=== PATIENT | male | born 1985 | race Caucasian/White ===

== ENCOUNTER 2020-02-06 20:48 | Inpatient (IN) ==
[2020-02-06] MEDS ORDERED: Isovue-370 500 ML BOTTLE IVP ONE (22:00)
[2020-02-06] MEDS ORDERED: *HR* FentaNYL (PF) 100 MCG/2 ML VIAL IVP ONE (22:03)
[2020-02-06 22:27] LABS: Basophils # 0.1 K/mcL (0.0-0.2); Basophils % 0.3 %; Eosinophils # 0.4 K/mcL (0.0-0.6); Eosinophils % 2.8 %; Hematocrit 41.8 % (37.5-50.1); Immature Granulocytes % 0.4 % (0-4); Lymphocytes % 12.7 %; Mean Corpuscular HGB Conc 33.5 g/dL (31.6-35.5); Mean Corpuscular Hemoglobin 29.5 pg (28.0-33.3); Mean Corpuscular Volume 88.2 fL (83.0-100.0); Mean Platelet Volume 9.2 fL (9.4-12.4); Monocytes # 1.1 K/mcL (0.0-1.3); Monocytes % 7.2 %; Platelet Count 243 K/mcL (140-400); Red Blood Count 4.74 M/mcL (4.19-5.50); Segmented Neutrophils % 76.6 %; White Blood Count 15.7 K/mcL (4.3-11.1)
[2020-02-06 23:03] LABS: BUN/Creatinine Ratio 14 (6-26); Blood Urea Nitrogen 12 mg/dL (6-20); C-Reactive Protein 38 mg/L (Less than 10); Calcium 9.5 mg/dL (8.6-10.3); Carbon Dioxide 24 mEq/L (23-29); Chloride 103 mEq/L (98-107); Glucose 95 mg/dL (70-105); Osmolality,Calculated 276 (280-300); Potassium 4.2 mEq/L (3.5-5.1); Sodium 133 mEq/L (136-145); eGFR For African Americans > 60 (> 60); eGFR For Non-African Americans > 60 (> 60)
[2020-02-06] MEDS ORDERED: 0.9 % Sodium Chloride 1,000 ML IVC ONE (23:41)
[2020-02-06] MEDS ORDERED: Vancomycin 1,500 MG/265 ML IV.SOLN IVPB ONE (23:50)
[2020-02-07] MEDS ORDERED: Cefepime HCl 1,000 MG in Water for inj. (sterile) 10 ML IVP ONE (02:00)
[2020-02-07] MEDS ORDERED: Naloxone 0.4 MG/ML INJ IVP PRN (02:45)
[2020-02-07] MEDS: 0.9 % Sodium Chloride 1,000 ML IVC SCH ×2 (03:55→11:46)
[2020-02-07 04:34] LABS: Hemoglobin 12.6 g/dL (12.9-16.9); Mean Corpuscular HGB Conc 33.2 g/dL (31.6-35.5); Mean Corpuscular Hemoglobin 30.2 pg (28.0-33.3); Mean Corpuscular Volume 91.1 fL (83.0-100.0); Mean Platelet Volume 9.5 fL (9.4-12.4); Platelet Count 210 K/mcL (140-400); Red Blood Count 4.17 M/mcL (4.19-5.50); Red Cell Distribution Width 13.2 % (11.5-14.5)
[2020-02-07 04:43] LABS: BUN/Creatinine Ratio 12 (6-26); Blood Urea Nitrogen 10 mg/dL (6-20); Calcium 8.2 mg/dL (8.6-10.3); Carbon Dioxide 21 mEq/L (23-29); Chloride 105 mEq/L (98-107); Glucose 125 mg/dL (70-105); Magnesium 1.9 mg/dL (1.6-2.6); Osmolality,Calculated 277 (280-300); Phosphorous 2.6 mg/dL (2.7-4.5); Potassium 3.9 mEq/L (3.5-5.1); Sodium 133 mEq/L (136-145); eGFR For African Americans > 60 (> 60); eGFR For Non-African Americans > 60 (> 60)
[2020-02-07] MEDS: Cefepime HCl 2,000 MG in Water for inj. (sterile) 20 ML IVP SCH ×2 (06:00→16:51)
[2020-02-07] MEDS ORDERED: Nicotine 2 MG GUM BC PRN (10:24)
[2020-02-07] MEDS: Nicotine 21 MG PATCH.TD24 TD SCH (11:16)
[2020-02-07] MEDS ORDERED: Acetaminophen 325 MG TABLET PO PRN (11:24)
[2020-02-07] MEDS ORDERED: Ondansetron 4 MG/2 ML VIAL IVP PRN (11:24)
[2020-02-07] MEDS: Vancomycin 1,500 MG/265 ML IV.SOLN IVPB SCH (13:20)
[2020-02-08] MEDS: Vancomycin 1,500 MG/265 ML IV.SOLN IVPB SCH (01:22)
[2020-02-08] MEDS: Cefepime HCl 2,000 MG in Water for inj. (sterile) 20 ML IVP SCH ×2 (06:15→17:03)
[2020-02-08] MEDS: Nicotine 21 MG PATCH.TD24 TD SCH (07:59)
[2020-02-08 12:50] LABS: Hematocrit 39.8 % (37.5-50.1); Hemoglobin 12.9 g/dL (12.9-16.9); Mean Corpuscular HGB Conc 32.4 g/dL (31.6-35.5); Mean Corpuscular Hemoglobin 29.3 pg (28.0-33.3); Mean Corpuscular Volume 90.2 fL (83.0-100.0); Mean Platelet Volume 9.7 fL (9.4-12.4); Platelet Count 255 K/mcL (140-400); Red Blood Count 4.41 M/mcL (4.19-5.50); Red Cell Distribution Width 12.7 % (11.5-14.5); White Blood Count 13.6 K/mcL (4.3-11.1)
[2020-02-08 13:07] LABS: BUN/Creatinine Ratio 8 (6-26); Blood Urea Nitrogen 8 mg/dL (6-20); Calcium 9.3 mg/dL (8.6-10.3); Carbon Dioxide 26 mEq/L (23-29); Chloride 98 mEq/L (98-107); Glucose 119 mg/dL (70-105); Osmolality,Calculated 273 (280-300); Phosphorous 3.1 mg/dL (2.7-4.5); Potassium 3.5 mEq/L (3.5-5.1); Sodium 132 mEq/L (136-145); eGFR For African Americans > 60 (> 60); eGFR For Non-African Americans > 60 (> 60)
[2020-02-08] MEDS: [UNRECOGNIZED DRUG - OTHER] PO SCH ×2 (13:16→17:04)
[2020-02-08] MEDS: Vancomycin 1,250 MG/262.5 ML IV.SOLN IVPB SCH ×2 (14:23→21:56)
[2020-02-09 01:37] LABS: Hematocrit 38.9 % (37.5-50.1); Hemoglobin 13.1 g/dL (12.9-16.9); Mean Corpuscular HGB Conc 33.7 g/dL (31.6-35.5); Mean Corpuscular Hemoglobin 30.3 pg (28.0-33.3); Mean Platelet Volume 10.3 fL (9.4-12.4); Platelet Count 216 K/mcL (140-400); Red Blood Count 4.32 M/mcL (4.19-5.50); Red Cell Distribution Width 12.5 % (11.5-14.5); White Blood Count 13.3 K/mcL (4.3-11.1)
[2020-02-09 01:52] LABS: BUN/Creatinine Ratio 12 (6-26); Blood Urea Nitrogen 10 mg/dL (6-20); Calcium 8.9 mg/dL (8.6-10.3); Carbon Dioxide 17 mEq/L (23-29); Chloride 102 mEq/L (98-107); Glucose 135 mg/dL (70-105); Osmolality,Calculated 275 (280-300); Potassium 4.5 mEq/L (3.5-5.1); Sodium 132 mEq/L (136-145); eGFR For African Americans > 60 (> 60); eGFR For Non-African Americans > 60 (> 60)
[2020-02-09] MEDS: Cefepime HCl 2,000 MG in Water for inj. (sterile) 20 ML IVP SCH ×2 (04:53→16:44)
[2020-02-09] MEDS: Vancomycin 1,250 MG/262.5 ML IV.SOLN IVPB SCH ×3 (05:15→21:13)
[2020-02-09] MEDS: [UNRECOGNIZED DRUG - OTHER] PO SCH (06:54)
[2020-02-09] MEDS: Nicotine 21 MG PATCH.TD24 TD SCH ×3 (07:15→15:36)
[2020-02-09] MEDS ORDERED: *HR* Propofol 200 MG/20 ML VIAL IVP ONE (07:37)
[2020-02-09] MEDS ORDERED: *HR* Midazolam HCl 2 MG/2 ML VIAL ONE (07:37)
[2020-02-09] MEDS ORDERED: *HR* FentaNYL (PF) 100 MCG/2 ML VIAL ONE (07:37)
[2020-02-09] MEDS ORDERED: Lidocaine -MPF 2% 2 ML VIAL ONE (07:40)
[2020-02-09] MEDS ORDERED: Dexamethasone 4 MG/ML VIAL ONE (07:41)
[2020-02-09] MEDS ORDERED: Ondansetron 4 MG/2 ML VIAL ONE (07:41)
[2020-02-09] MEDS ORDERED: *HR* OxyCODONE Immed Rel 5 MG TABLET PO PRN (07:44)
[2020-02-09] MEDS ORDERED: *HR* HYDROmorphone PF 0.5 MG/0.5 ML SYRINGE IVP PRN ×2 (07:44→09:26)
[2020-02-09] MEDS ORDERED: Acetaminophen IV 1,000 MG/100 ML INFUS..BTL ONE (08:04)
[2020-02-09] MEDS ORDERED: Nicotine 2 MG GUM BC PRN (09:26)
[2020-02-09] MEDS ORDERED: Ondansetron 4 MG/2 ML VIAL IVP PRN (09:26)
[2020-02-09] MEDS ORDERED: Acetaminophen 325 MG TABLET PO PRN (09:26)
[2020-02-09] MEDS ORDERED: Naloxone 0.4 MG/ML INJ IVP PRN (09:26)
[2020-02-09] MEDS ORDERED: Patient Taking Own Medication 1 EACH PO SCH (12:00)
[2020-02-09] MEDS: polyethylene glycoL 3350 17 GM POWD.PACK PO SCH (14:30)
[2020-02-10] MEDS: Cefepime HCl 2,000 MG in Water for inj. (sterile) 20 ML IVP SCH ×2 (05:38→17:01)
[2020-02-10] MEDS: Vancomycin 1,250 MG/262.5 ML IV.SOLN IVPB SCH (05:39)
[2020-02-10] MEDS ORDERED: Ketorolac 15 MG/ML VIAL IVP ONE (06:02)
[2020-02-10] MEDS: polyethylene glycoL 3350 17 GM POWD.PACK PO SCH (07:45)
[2020-02-10] MEDS: Nicotine 21 MG PATCH.TD24 TD SCH (07:45)
[2020-02-10 08:44] LABS: Hematocrit 36.7 % (37.5-50.1); Mean Corpuscular HGB Conc 32.7 g/dL (31.6-35.5); Mean Corpuscular Hemoglobin 29.3 pg (28.0-33.3); Mean Corpuscular Volume 89.7 fL (83.0-100.0); Mean Platelet Volume 9.2 fL (9.4-12.4); Platelet Count 271 K/mcL (140-400); Red Blood Count 4.09 M/mcL (4.19-5.50); Red Cell Distribution Width 12.3 % (11.5-14.5); White Blood Count 15.3 K/mcL (4.3-11.1)
[2020-02-10] MEDS ORDERED: Nicotine 21 MG PATCH.TD24 TD SCH (09:00)
[2020-02-10 09:02] LABS: BUN/Creatinine Ratio 16 (6-26); Blood Urea Nitrogen 13 mg/dL (6-20); Calcium 8.6 mg/dL (8.6-10.3); Carbon Dioxide 25 mEq/L (23-29); Chloride 101 mEq/L (98-107); Glucose 162 mg/dL (70-105); Magnesium 1.9 mg/dL (1.6-2.6); Osmolality,Calculated 280 (280-300); Potassium 3.8 mEq/L (3.5-5.1); Sodium 133 mEq/L (136-145); eGFR For African Americans > 60 (> 60); eGFR For Non-African Americans > 60 (> 60)
[2020-02-10] MEDS: Vancomycin 1,500 MG/265 ML IV.SOLN IVPB SCH ×2 (17:00→23:06)
[2020-02-11] MEDS: Cefepime HCl 2,000 MG in Water for inj. (sterile) 20 ML IVP SCH (05:06)
[2020-02-11 05:27] LABS: Mean Corpuscular HGB Conc 32.4 g/dL (31.6-35.5); Mean Corpuscular Hemoglobin 29.3 pg (28.0-33.3); Mean Corpuscular Volume 90.5 fL (83.0-100.0); Mean Platelet Volume 9.6 fL (9.4-12.4); Platelet Count 265 K/mcL (140-400); Red Blood Count 4.09 M/mcL (4.19-5.50); Red Cell Distribution Width 12.5 % (11.5-14.5); White Blood Count 9.3 K/mcL (4.3-11.1)
[2020-02-11 05:46] LABS: BUN/Creatinine Ratio 12 (6-26); Blood Urea Nitrogen 9 mg/dL (6-20); Calcium 8.6 mg/dL (8.6-10.3); Carbon Dioxide 22 mEq/L (23-29); Chloride 104 mEq/L (98-107); Glucose 164 mg/dL (70-105); Osmolality,Calculated 280 (280-300); Potassium 3.8 mEq/L (3.5-5.1); Sodium 134 mEq/L (136-145); eGFR For African Americans > 60 (> 60); eGFR For Non-African Americans > 60 (> 60)
[2020-02-11 06:40] VITALS: BP 131/84
[2020-02-11] MEDS ORDERED: Sulfamethoxazole/Trimeth DS 1 EACH TABLET PO SCH (09:00)
[2020-02-11] MEDS: Nicotine 21 MG PATCH.TD24 TD SCH (09:26)
[2020-02-11] MEDS: polyethylene glycoL 3350 17 GM POWD.PACK PO SCH (09:28)
== END 2020-02-11 13:20 | disposition home or self-care (01) | DRG 710 ==
LOC: 3NENU 20:48 → EMEROOARM 20:48 → SUATTDRO 02-07 02:07 → 3NENU 02-07 02:49
PROVIDERS: ADMIT Internal Medicine; ATTEND Internal Medicine